=== PATIENT | female | born 1965 | race Caucasian/White ===

== ENCOUNTER → 2020-11-08 | Outpatient (CLI) | payer BC, OTHER ==
--- NOTE | 2020-11-08 16:56 | KCIC ---
Bilateral digital screening mammograms with 3-D tomosynthesis: Reason for examination: Routine screening. No previous exams available for comparison. New baseline. Bilateral mammograms in CC and oblique projections were obtained with 2-D imaging and 3-D tomosynthes is imaging on a [employer] unit and reviewed on the workstation. Interpretation was made with the benefit of CAD. The skin and nipples show no abnormalities. No abnormal axillary lymph nodes are seen. The breast par enchyma is predominantly fatty. (Breast density: Category A.) There is a small 5 mm circumscribed nod ule in the central right breast approximately 9 cm deep to the nipple. Further evaluation with ultras ound is recommended. There are no other dominant masses, suspicious calcifications or architectural d istortion. Impression: 5 mm nodule in the central right breast. Recommend further evaluation with ultrasound. BI-RAD Category 0: Incomplete. Needs additional imaging evaluation. "Our facility is accredited by the [employer] Mammography [employer]." This patient's information has been entered into a reminder system for the patient to be notified wit h the results of her examination and a target date for the next mammogram. Electronically signed by: Landy Moreland MD (11/08/2020 4:54 PM) [id number]
== END ==
LOC: KCIC MAMMO 15:14
PROVIDERS: ATTEND Family Medicine
DX: Z12.31 Encounter for screening mammogram for malignant neoplasm of breast (principal); N64.89 Other specified disorders of breast
CPT/HCPCS: 77063; 77067

== ENCOUNTER → 2020-11-22 | Outpatient (CLI) | payer OTHER ==
--- NOTE | 2020-11-23 08:42 | RAD ---
Examination: Limited right breast ultrasound. COMPARISON: Recall from mammographic screening for central right breast nodule. COMPARISON: Bilateral mammogram 11/08/2020 FINDINGS: Targeted ultrasound of the right breast focused in the central right breast subareolar region showed no suspicious sonographic findings. In correlation with the mammographic finding, nodularity in the c entral right breast (in the absence of a suspicious sonographic correlate) most likely represents danelle ign nodularity of fibrocystic change. Sonographic survey of the right axilla revealed sonographically benign axillary lymph nodes. IMPRESSION: Benign findings on targeted sonographic survey of the right breast and axilla. No evidence of maligna ncy. There is category 2 Benign findings Recommend return to routine screening next due in one year Patient entered into a reminder system with targeted due date for next mammogram. Electronically signed by: Lizbeth Painter MD (11/23/2020 8:40 AM) [id number]
== END ==
LOC: US 10:40
PROVIDERS: ATTEND Family Medicine
DX: R92.8 Other abnormal and inconclusive findings on diagnostic imaging of breast (principal); N63.10 Unspecified lump in the right breast, unspecified quadrant
CPT/HCPCS: 76641

== ENCOUNTER → 2021-08-23 | Outpatient (CLI) | payer OTHER ==
--- NOTE | 2021-08-24 11:37 | KCIC ---
XR KNEE 3 VIEWS_RT DATE: 08/23/2021 3:05 PM INDICATION: RIGHT KNEE PAIN S/P FALL 10 DAYS AGO COMPARISON: None. FINDINGS: Bones: There is no evidence of acute fracture or dislocation. Joints: The joint spaces are normal. There is no joint effusion. Miscellaneous: None. IMPRESSION: No acute osseous abnormality. Electronically signed by: Yousuf Hedrick MD (08/24/2021 11:34 AM) [id number]
== END ==
LOC: KCIC 15:02
PROVIDERS: ATTEND Family Medicine
DX: M25.561 Pain in right knee (principal)
CPT/HCPCS: 73562

== ENCOUNTER → 2021-11-09 | Outpatient (CLI) | payer OTHER ==
[~2021-11-09] MED LIST: HYDR-2761 PO; HYDR-2765 PO; IBUP-1007 PO; LISI20TA18 PO
== END ==
LOC: LAB 11:32
PROVIDERS: ATTEND Orthopaedic Surgery
DX: Z01.812 Encounter for preprocedural laboratory examination (principal); Z20.822 Contact with and (suspected) exposure to COVID-19
CPT/HCPCS: U0003; U0005

== ENCOUNTER 2021-11-11 13:58 | Day surgery (SDC) | payer OTHER ==
[~2021-11-11] VITALS: Ht 163.8 cm; Wt 108.6 kg
[~2021-11-11 13:58] MED LIST changes: +BUPIVACAINE-EPI 0.5% 30 ML VIAL KIT. ONE; -HYDR-2761 PO; +HYDROmorphone 2 MG/ML VIAL IVP PRN; +IV RINGERS,LACTATED 1000ML 1,000 ML IV SCH; +MORPHINE SULFATE 2 MG/ML INJ. IVP PRN; +PROCHLORPERAZINE 10 MG/2 ML VIAL. IVP PRN; +fentaNYL PF VIAL 100 MCG/2 ML VIAL IVP PRN
[2021-11-11] MEDS ORDERED: fentaNYL PF VIAL 100 MCG/2 ML VIAL ONE (14:11)
[2021-11-11] MEDS ORDERED: LIDOCAINE 2% PF 5 ML VIAL. ONE (14:11)
[2021-11-11] MEDS ORDERED: PROPOFOL 10 MG/ML (20ML) VIAL. IV ONE ×2 (14:11→15:22)
[2021-11-11] MEDS ORDERED: MIDAZOLAM HCL/PF 2 MG/2 ML VIAL. ONE (14:11)
[2021-11-11 14:23] VITALS: BP 180/105
[2021-11-11] MEDS ORDERED: SCOPOLAMINE 1.5MG PATCH. TD ONE (14:45)
[2021-11-11] MEDS ORDERED: ONDANSETRON PF 4 MG/2 ML VIAL. ONE (14:45)
[2021-11-11] MEDS ORDERED: FAMOTIDINE 20 MG/2 ML VIAL ONE (14:45)
[2021-11-11] MEDS ORDERED: SEVOFLURANE 61 TO 120 MINUTES. IH ONE (15:09)
[2021-11-11] MEDS ORDERED: DEXAMETHASONE SOD PHOS 4 MG/ML VIAL ONE (15:09)
[2021-11-11] MEDS ORDERED: KETOROLAC 30 MG/ML VIAL. ONE (15:22)
--- NOTE | 2021-11-11 15:36 | DISCH ---
DISCHARGE INSTRUCTIONS Condition on Discharge Condition on Discharge: Stable Activity After Discharge Activity Instructions for Disc: Activity as tolerated Driving Instructions after Dis: Do not drive today Weight Bearing Status after Di: Full weight bearing Wound Incision Care Wound/Incision Care: Ice to area for comfort, Keep wound elevated Other wound/incision instructi: May change postoperative day #3 to Band-Aids waterproof Follow-Up Follow up with: 10 to 14 days VERONIQUE MADERA Jr. DO Nov 11, 2021 15:36
[2021-11-11] MEDS ORDERED: HYDR-2761 PO (15:37)
[2021-11-11] MEDS ORDERED: HYDROcodone/APAP 5/325MG 1 TAB TABLET PO ONE (16:15)
[2021-11-11 16:20] VITALS: BP 170/94
--- NOTE | 2021-11-11 18:24 | OP ---
DATE OF SURGERY: 11/11/2021 PREOPERATIVE DIAGNOSES: Medial meniscal tear, right knee with degenerative joint disease. POSTOPERATIVE DIAGNOSES: Lateral meniscal tear, right knee with degenerative joint disease. PROCEDURE: Right knee arthroscopy with partial lateral meniscectomy joint debridement, synovectomy. SURGEON: Luis Callaway Jr., DO. BENCH CARPENTER: Mayur Arreaga. ANESTHESIA: General. COMPLICATIONS: None. ESTIMATED BLOOD LOSS: 20 mL. DESCRIPTION OF PROCEDURE: The patient was taken to the operative suite, given a general anesthetic, the right lower extremity was then prepped and draped in a sterile fashion. Inferomedial and inferolateral portals were established. Knee was insufflated with saline. Visualization of the patellofemoral joint, noted there have grade 3 and grade 4 changes, unstable areas of chondral cartilage was noted at this point. This was debrided back using a shaver back to stable tissue; however, there was an abundant amount of bone exposure of the femoral sulcus at this point. The undersurface of the patella was mostly grade 3. Attention was then directed to the medial gutters. No loose bodies were noted within the medial or lateral gutters and prior to entering the knee joint on the medial side, there was tibial degenerative changes, grade IV on the more peripheral aspect along the anterior and middle junction of the tibial plateau. Probing of the meniscus noted this to be stable however. Debridement was undertaken of that tibial plateau region back to stable tissue, but again bone was exposed. The ACL and the PCL appeared intact and were indeed stable with probing. The scope was then taken into the lateral compartment, there was noted to be a tear of the lateral meniscus along the area of the posterior horn. This did involve a small area of the posterior attachment, but this was only about a 30% tear that area in particular. At this point, this was debrided using a shaver back to stable tissue and after the partial lateral meniscectomy was undertaken. Chondral surfaces were inspected and noted to be completely intact and stable. No new problems or lesions were noted. Therefore, this was thoroughly irrigated and suctioned dry. All instruments were then removed. Wounds were reapproximated. Sterile dressing was applied. The patient was taken from the operative bed to the postoperative bed, taken to the PACU in stable condition. CAMI DR: Aretha TID: [id number]
== END 2021-11-11 16:45 | disposition home or self-care (01) ==
LOC: SURG 13:58
PROVIDERS: ATTEND Orthopaedic Surgery
DX: S83.281A Other tear of lateral meniscus, current injury, right knee, initial encounter (principal); M17.11 Unilateral primary osteoarthritis, right knee; I10 Essential (primary) hypertension; D64.9 Anemia, unspecified; Z90.710 Acquired absence of both cervix and uterus; Z98.890 Other specified postprocedural states; Z79.899 Other long term (current) drug therapy; Z72.89 Other problems related to lifestyle; X58.XXXA Exposure to other specified factors, initial encounter; Y93.89 Activity, other specified; Y92.89 Other specified places as the place of occurrence of the external cause; Y99.8 Other external cause status
CPT/HCPCS: 29881; A4930; J0690; J1100; J1885; J2250; J2405; J2704; J3010; J3490

== ENCOUNTER → 2021-12-09 | Outpatient (CLI) | payer OTHER ==
[2021-11-11 16:20] VITALS: BP 170/94
[~2021-12-09] MED LIST changes: -BUPIVACAINE-EPI 0.5% 30 ML VIAL KIT. ONE; +HYDR-2761 PO; -HYDROmorphone 2 MG/ML VIAL IVP PRN; -IV RINGERS,LACTATED 1000ML 1,000 ML IV SCH; -MORPHINE SULFATE 2 MG/ML INJ. IVP PRN; -PROCHLORPERAZINE 10 MG/2 ML VIAL. IVP PRN; -fentaNYL PF VIAL 100 MCG/2 ML VIAL IVP PRN
--- NOTE | 2021-12-09 11:48 | KCIC ---
EXAM: Chest, 2 views. HISTORY: Bronchitis. COMPARISON: None. FINDINGS: 2 views of the chest are obtained. There is no infiltrate, pleural effusion or pneumothorax . The heart is normal in size. There is cervical spinal fusion instrumentation. IMPRESSION: No acute pulmonary finding. Electronically signed by: Shira Rivers MD (12/09/2021 11:45 AM) [id number]
== END ==
LOC: KCIC 11:22
PROVIDERS: ATTEND Family Medicine
DX: J40 Bronchitis, not specified as acute or chronic (principal)
CPT/HCPCS: 71046